=== PATIENT | male | born 1965 | race Caucasian/White ===

== ENCOUNTER → 2020-04-21 | Outpatient (CLI) | payer BC ==
[~2020-04-21] MED LIST: CELEBREX 200 M200 MG PO; IBUPROFEN200 M1 PO; LO-DOSE ASPIRIN81 M1 PO; LORATIDINE 10 M10 M1 PO; MELATONIN5 MG PO; OINTMENT TOP; OMEGA 3 1,0001 EACH PO; OMEPRAZOLE40 MG PO; ONE-DAILY MULT1 EAC1 PO; ROSUVASTATIN CA20 MG PO; SINGULAIR 10 MG10 MG PO; VITAMIN D3125 MC2 PO; ZETIA10 MG PO; ZOLOFT50 M1 PO
== END ==
LOC: LAB 07:40
PROVIDERS: ATTEND Podiatrist Foot & Ankle Surgery
DX: Z01.812 Encounter for preprocedural laboratory examination (principal); Z20.828 Contact with and (suspected) exposure to other viral communicable diseases

== ENCOUNTER 2020-04-23 06:14 | Day surgery (SDC) | payer BC ==
[~2020-04-23] VITALS: Ht 167.6 cm; Wt 81.2 kg
--- NOTE | ~2020-04-23 | O ---
[facility] [address] OPERATIVE REPORT Name: HEIDY NELSON Room #: 150-2 [facility] M.R.#: [id number] Admission: 04/23/20 Attend Phys: Rylan Pratt DPM Discharge: Date of : 61 Report #: [id number] THIS REPORT FOR: cc: FAM - Family physician unknown FAM - Family physician unknown Rylan Pratt DPM ~ DATE OF SERVICE: 04/23/2020 SURGEON: Rylan Pratt DPM. PREOPERATIVE DIAGNOSES: 1. Insertional Achilles tendinitis with enthesiopathy and insertional spur, right. 2. Tabitha's deformity, right posterior superior calcaneus. ANESTHESIA: General endotracheal. ESTIMATED BLOOD LOSS: Minimal. HEMOSTASIS: Right thigh tourniquet at 300 mmHg. IMPLANTS: Arthrex Achilles tendon SpeedBridge for insertional tendon repair. SUTURES: 3-0 Vicryl, 3-0 nylon. GRAFT: Stravix umbilical graft (frozen). SPECIMENS: None. COMPLICATIONS: None. INJECTABLES: 30 mL of 0.5% Marcaine plain. DESCRIPTION OF PROCEDURE: The patient was brought to the OR with induction of general endotracheal anesthesia. The patient was placed prone on the OR table with adequate padding and protection. A well-padded right thigh tourniquet was placed and a local anesthetic block was given to the right posterior ankle. The extremity was prepped and draped aseptically and the extremity was exsanguinated with inflation of the tourniquet. A #15 surgical blade was used to create a longitudinal incision over the central aspect of the right distal Achilles tendon. Layered anatomic dissection utilized down to the peritenon, which was then sharply reflected off the tendon both medial and laterally. The Achilles tendon was then transected longitudinally down the middle and reflected off the insertion of the calcaneus. Some fibers of the Achilles were left intact at both medial and lateral margins of the split tendon. A large insertional enthesis was noted and transected with a sagittal saw followed by naren [address] [address] OPERATIVE REPORT Name: HEIDY NELSON Room #: 150-2 [facility] M.R.#: [id number] Admission: 04/23/20 Attend Phys: Rylan Pratt DPM Discharge: Date of : 61 Report #: [id number] manual bone rasp. The enlarged posterior superior surface of the calcaneus, known as a Tabitha's deformity, was also transected with a sagittal saw and the area also recontoured. The wound was flushed with sterile saline and dried. I then repaired the Achilles tendon insertion with the Arthrex SpeedBridge system in standard technique and proper tensioning. There was excellent tenodesis to the posterior calcaneus under appropriate tension and then a Stravix umbilical graft was placed over the tendon and gently sutured with 3-0 Vicryl to prevent graft slippage. A running intradermal stitch of 3-0 Vicryl was used and the skin was closed with sidney. Xeroform was placed over the incision and a sterile Webril and posterior splint was applied. Prior to this, the tourniquet was deflated with normal vascular return to the extremity. The patient left the OR with no pain or complications. I did place his foot in roughly 10 degrees of plantar flexion in the posterior fiberglass splint to facilitate tenodesis. By: [id number] Rylan Pratt DPM /christy
[2020-04-23 07:21] LABS: HEMOGLOBIN 15.1 gm/dL (14.0-18.0)
--- NOTE | 2020-04-23 07:28 | EKG ---
[facility] [address] [place] [address] ELECTROCARDIOGRAM REPORT Name: HEIDY NELSON Room #: 150-2 [facility] M.R.#: [id number] Admission: 04/23/20 Attend Phys: Rylan Pratt DPM Discharge: Date of : 61 Report #: [id number] THIS REPORT FOR: cc: FAM - Family physician unknown FAM - Family physician unknown Ang Woods MD FACC ~ <ELECTRONICALLY SIGNED> By: Ang Woods MD, FACC 04/23/20 0728 0 0 Ang Woods MD, FACC /EPI
[2020-04-23 07:33] VITALS: BP 124/82
[2020-04-23 09:56] VITALS: BP 124/82
[2020-04-23 09:57] VITALS: BP 124/82
== END 2020-04-23 10:45 | disposition home or self-care (01) ==
LOC: TBA 06:14 → OR 06:14
PROVIDERS: ATTEND Podiatrist Foot & Ankle Surgery
DX: M77.31 Calcaneal spur, right foot (principal); M76.61 Achilles tendinitis, right leg; J45.909 Unspecified asthma, uncomplicated; E78.5 Hyperlipidemia, unspecified; F32.9 Major depressive disorder, single episode, unspecified; K21.9 Gastro-esophageal reflux disease without esophagitis; Z98.890 Other specified postprocedural states; Z79.899 Other long term (current) drug therapy; Z98.52 Vasectomy status; Z85.828 Personal history of other malignant neoplasm of skin
CPT/HCPCS: 50010; 50101; 50386; 50951; 51412; 56526; 57091; 57180; 57256; 58260; 62110; 62900; 70005